=== PATIENT | female | born 1960 | race Caucasian/White ===

== ENCOUNTER 2025-03-11 16:45 | Emergency (ER) | payer MEDICARE, SELFPAY ==
[2025-03-11] VITALS (7 sets, daily range): BP systolic 109–123; BP diastolic 55–69; PULSE 66–86; RESP 15–21; TEMP 36.3; O2SAT 99–100; BMI 30.7
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
[2025-03-11] MEDS: 0.9% Normal Saline (1000mL) 1,000 ML 150 ML IV (17:45)
[2025-03-11 17:47] LABS: Hematocrit 40.5 % (37-47); Hemoglobin 13.0 g/dL (12.0-15.0); Immature Granulocytes Count 0.110 X10^3/uL (0.0-0.0); Mean Corp Hgb Conc 32.1 g/dL (32-36); Mean Corpuscular Volume 90.8 fL (81-99); Mean Platelet Vol. 9.1 fl (6.2-12.0); NRBC Flagged by Analyzer 0 % (0-5); Platelet Count 343 K/mm3 (150-450); RBC Distribution Width CV 11.9 % (11.6-14.6); RBC Distribution Width SD 39.8 fl (35.1-43.9); Red Blood Count 4.46 M/mm3 (4.2-5.4); White Blood Count 10.2 K/mm3 (4.4-11.0)
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
--- NOTE | 2025-03-11 17:55 | CT_ITS ---
PROCEDURE: CT CHEST, ABD, PEL W/CONTRAST 03/11/2025 REASON FOR EXAM: [facility] TECHNIQUE: Chest, abdomen and pelvis CT with intravenous contrast. Coronal and Sagittal reconstruction series were provided. One or more dose reduction techniques were used (e.g., Automated exposure control, adjustment of the mA and/or kV according to patient size, use of iterative reconstruction technique. CONTRAST: Isovue 300 VOLUME: 87mL Gauge IV RADIATION DOSE SUMMARY: CTDlvol: 44+ 21+ 15+ 16+ 21 mGy DLP: 2902 mGycm FINDINGS: CT CHEST: The peripheral soft tissues unremarkable. Degenerative changes of the spine. No acute osseous abnormalities. The thyroid is unremarkable. The esophagus normal in caliber. Normal caliber thoracic aorta. The heart is normal in size. The lungs are clear. CT ABDOMEN/PELVIS: The peripheral soft tissues are unremarkable. Degenerative changes of the spine. No acute osseous abnormalities. The liver, gallbladder, pancreas, spleen, adrenals unremarkable. Right kidney lower pole calculus. No hydroureteronephrosis. Symmetric enhancement of the kidneys. The urinary bladder is unremarkable. Lobular uterus likely representing underlying fibroids. Normal caliber large and small bowel without surrounding inflammatory changes. CT/CT Chest, Abd, Pel w/Contrast IMPRESSION: No acute traumatic injury of the chest, abdomen, or pelvis. Uterine fibroids. Reading Location: [facility]
[2025-03-11 18:15] LABS: AST(SGOT) 36 U/L (<=31); Alanine Aminotransfer ALT/SGPT 26 U/L (<=34); Albumin, Serum 4.3 g/dL (3.4-4.8); Alkaline Phosphatase 98 U/L (35-104); Anion Gap 13 (5-15); BUN 22 mg/dL (4-19); BUN/Creat Ratio 30.8 RATIO (10-20); Calcium,Total 9.4 mg/dL (7.6-11.0); Carbon Dioxide 24.2 mmol/L (21.0-32.0); Chloride 102 mmol/L (98-108); Estimated Creatinine Clearance 64.99 ml/min (50-250); Globulin 2.5 g/dL (2.2-4.2); Glucose 103 mg/dL (70-99); Potassium 3.6 mmol/L (3.3-5.1)
[2025-03-11 18:22] LABS: Mucous, Urine 0 SEEN /hpf (<or=2+)
[2025-03-11 18:51] LABS: Color, Urine Yellow (Yellow); Glucose, Dipstick Normal (Normal); Ketone-Dipstick 50 mg/dl (Negative); Leukocyte Esterase-Dipstick 25 /ul (Negative); Nitrite-Dipstick Negative (Negative); Occult Blood-Urine 150 /ul (Negative); Protein-Dipstick 100 mg/dl (Negative); Specific Gravity, Urine 1.020 (1.002-1.030); Urine Bilirubin Dipstick Negative (Negative)
[2025-03-11 19:10] LABS: Red Blood Cells-Urine 5-10 SEEN /hpf (0-5); Squamous Epithelial Cells - UA 0-5 SEEN /hpf (5-10)
[2025-03-11] MEDS: HYDROcodone Bitartrate/Apap 5/325 Tablet PO (19:55)
== END 2025-03-11 20:11 | disposition home or self-care (01) ==
PROVIDERS: Emergency Provider Emergency Medicine; Visit Provider Emergency Medicine
DX: S39.012A Strain of muscle, fascia and tendon of lower back, initial encounter (principal); S29.011A Strain of muscle and tendon of front wall of thorax, initial encounter; S20.20XA Contusion of thorax, unspecified, initial encounter; V89.2XXA Person injured in unspecified motor-vehicle accident, traffic, initial encounter
CPT/HCPCS: 70450; 71260; 72125; 74177; 80053; 81001; 85025; 96360; 96361; 99285; Q9967; A4216